=== PATIENT | female | born 1990 | race Two or more races ===

== ENCOUNTER 2017-06-25 16:31 | Inpatient (IN) | payer OTHER ==
[2017-06-25 17:37] VITALS: BMI 29.2
--- NOTE | 2017-06-25 20:27 | HP ---
Admission [facility] Chief Complaint: i am here for rehab from alcohol and cocaine Allergies/Adverse Reactions: Allergies Allergy/AdvReac Type Severity Reaction Status Date / Time No Known Drug Allergies Allergy Verified 06/25/17 19:42 History of Present Illness: this 27 years old female with alcohol and cocaine dependence,seeking rehab,last treatment 06/16/17 to 06/20/17 did not recall the facility nicotine dependence no significant period of sobriety Exam Limitations: No Limitations - Ebola screening Have you traveled outside of the country in the last 21 days: No Have you had contact with anyone from an Ebola affected area: No Have you been sick,other than usual withdrawal symptoms: No - Review of Systems Constitutional: No Symptoms Reported, Changes in sleep EENT: reports: No Symptoms Reported Respiratory: reports: No Symptoms reported, Other (asthma) Cardiac: reports: No Symptoms Reported GI: reports: No Symptoms Reported : reports: No Symptoms Reported Musculoskeletal: reports: No Symptoms Reported Integumentary: reports: No Symptoms Reported Neuro: reports: No Symptoms reported Endocrine: reports: No Symptoms Reported Hematology: reports: No Symptoms Reported Psychiatric: reports: No Sypmtoms Reported Patient History - Patient Medical History Hx Anemia: No Hx Asthma: Yes (on albuterol inhaler) Hx Chronic Obstructive Pulmonary Disease (COPD): No Hx Cancer: No Hx Cardiac Disorders: No Hx Congestive Heart Failure: No Hx Hypertension: No Hx Hypercholesterolemia: No Hx Pacemaker: No HX Cerebrovascular Accident: No Hx Seizures: No Hx Dementia: No Hx Diabetes: No Hx Gastrointestinal Disorders: No Hx Liver Disease: No Hx Genitourinary Disorders: No Hx Sexually Transmitted Disorders: No Hx Renal Disease (ESRD): No Hx Thyroid Disease: No Hx Human Immunodeficiency Virus (HIV): No (2017 negative last) Hx Hepatitis C: No Hx Depression: No Hx Suicide Attempt: No Hx Bipolar Disorder: No Hx Schizophrenia: No Other Medical History: no suicidal,no homicidal - Patient Surgical History Past Surgical History: No - PPD History Previous Implant?: Yes Documented Results: Negative w/o proof Implanted On Prior R Admission?: No PPD to be Administered?: Yes - Reproductive History Patient is a Female of Child Bearing Age (11 -55 yrs old): Yes Last Menstrual Period: 01/14/17 Patient : No - Smoking Cessation Smoking history: Current every day smoker Have you smoked in the past 12 months: Yes Aproximately how many cigarettes per day: 10 Hx Chewing Tobacco Use: No Initiated information on smoking cessation: Yes 'Breaking Loose' booklet given: 06/25/17 - Substance & Tx. History Hx Alcohol Use: Yes Hx Substance Use: Yes Substance Use Type: Alcohol, Cocaine Hx Substance Use Treatment: Yes (06/16/17 to 06/20/[facility]) - Substances Abused Alcohol Route: Oral Frequency: 1-2 times per week Amount used: 3 of 24 ozs of beer Age of first use: 19 Date of Last Use: 06/23/17 Cocaine Route: Inhalation Frequency: 1-2 times per week Amount used: 2 grams Age of first use: 22 Date of Last Use: 06/23/17 Family Disease History - Family Disease History Family History: Denies Admission Physical Exam [facility] - Vital Signs Vital Signs: Vital Signs - 24 hr 06/25/17 17:33 Temperature 97.5 F L Pulse Rate 110 H Respiratory 18 Rate Blood Pressure 124/70 - Physical General Appearance: Yes: Within Normal Limits HEENTM: Yes: Hearing grossly Normal, Normal ENT Inspection, Pharynx Normal Respiratory: Yes: Lungs Clear, Normal Breath Sounds, No Respiratory Distress Neck: Yes: Within Normal Limits Breast: Yes: Breast Exam Deferred Cardiology: Yes: Within Normal Limits, Regular Rhythm, Regular Rate, S1, S2, Diastolic Murmur Abdominal: Yes: Within Normal Limits, Normal Bowel Sounds, Non Tender, Flat, Soft Genitourinary: Yes: Within Normal Limits Back: Yes: Within Normal Limits Musculoskeletal: Yes: Within Normal Limits Extremities: Yes: Within Normal Limits Neurological: Yes: Within Normal Limits, system support analyst II-XII NML intact, Alert, Motor Strength 5/5 Integumentary: Yes: Within Normal Limits Lymphatic: Yes: Within Normal Limits - Diagnostic (1) Alcohol dependence Status: Acute (2) Cocaine dependence Status: Acute (3) Asthma Status: Acute (4) Nicotine dependence Status: Acute Cleared for Admission [facility] - Detox or Rehab Claeared for Rehab Admission: Yes [facility] Breath Alcohol Content Breath Alcohol Content: 0 Urine Pregancy Test - Result Urine Test Results: Negative- NO Line Present Urine Drug Screen - Results Drug Screen Negative: No Urine Drug Screen Results: NARGIS-Cocaine, BZO-Benzodiazepines
[2017-06-25] MEDS ORDERED: MAGNESIUM CITRATE 300 ML BOTTLE PO PRN (20:45)
[2017-06-25] MEDS ORDERED: IBUPROFEN 400 MG TABLET (FP) PO PRN (20:45)
[2017-06-25] MEDS ORDERED: MAG HYDROX/AL HYDROX/SIMETH 30 ML UNIT-DOSE CUP PO PRN (20:45)
[2017-06-25] MEDS ORDERED: LOPERAMIDE HCL 2 MG CAPSULE PO PRN (20:45)
[2017-06-25] MEDS ORDERED: diphenhydrAMINE HCL 50 MG CAPSULE PO PRN (20:45)
[2017-06-25] MEDS ORDERED: MAGNESIUM HYDROX 2400MG/30ML ORAL SUSPENSION 30 ML CUP PO PRN (20:45)
[2017-06-25] MEDS ORDERED: guaiFENesin/D-METHORPHAN HB 10 ML UNIT-DOSE CUPS PO PRN (20:45)
[2017-06-25] MEDS ORDERED: P-EPHED 60MG/TRIPROLIDI 2.5MG TABLET PO PRN (20:45)
[2017-06-25] MEDS ORDERED: ACETAMINOPHEN 325 MG TABLET (FP) PO PRN (20:45)
[2017-06-25] MEDS ORDERED: MENTHOL/PHENOL 1 EACH UD MM PRN (20:45)
[2017-06-25] MEDS ORDERED: ALBUTEROL SO4 6.7 GM HFA INHALER IH PRN (20:47)
[2017-06-25] MEDS ORDERED: TUBERCULIN PPD 5 TU/0.1ML VIAL ID ONE (22:34)
[2017-06-25] MEDS: NICOTINE 21 MG/24 HOURS TOPICAL PATCH TD SCH (22:49)
[2017-06-25] MEDS: THIAMINE HCL 100 MG TABLET (FP) PO SCH (23:52)
[2017-06-26] MEDS: NICOTINE POLACRILEX 2 MG GUM BC PRN ×2 (01:46→07:46)
[2017-06-26] MEDS: hydrOXYzine PAMOATE 50 MG CAPSULE (FP) PO PRN ×2 (01:48→09:15)
[2017-06-26] MEDS: PRENATAL VITAMINS W/ FOLIC ACID TABLET (FP) PO SCH (09:15)
[2017-06-26] MEDS: NICOTINE 21 MG/24 HOURS TOPICAL PATCH TD SCH (09:15)
--- NOTE | 2017-06-26 11:59 | EKG ---
Test Reason : Blood Pressure : / mmHG Vent. Rate : 079 BPM Atrial Rate : 079 BPM P-R Int : 126 ms QRS Dur : 084 ms QT Int : 358 ms P-R-T Axes : 049 044 029 degrees QTc Int : 410 ms NORMAL SINUS RHYTHM POSSIBLE LEFT ATRIAL ENLARGEMENT BORDERLINE ECG NO PREVIOUS ECGS AVAILABLE Confirmed by JODIE SÁNCHEZ, MICHAEL ([id number]) on 06/26/2017 11:58:55 AM Referred By: Confirmed By:MICHAEL FELICIANO MD
--- NOTE | 2017-06-26 13:26 | HP ---
Psychiatrist Admission - Data Date of interview: 06/26/17 Admission source: [facility] Identifying data: This is the first inpatient rehabilitation admission fot this 27 year old female, who is and domiciled. Medical History: Asthma, smokes cigarettes 1/2 PPD. Psychiatric History: Patient is poor unrelable historian, she is uable to provide with any information, she laughing for no reason, changing her answers, told has 3 chilrden, later reported has no children. She is familiar with seroquel , reports "this medication put her me to sleep and I was eating a lot ". When asked what is her pharmacy, [facility] "and all others, why you asking me all this questions" the pharmacy contacted [phone], pharmacist reported that she was on Risperdal 3 mg po hs and Lexapro 10 mg po dailly, was refilled on 01/17. Patient was very detsructive during interview, unable to sit still, silly affect. When asked if she is willing to take Risperdal, she agreed to take medications. Vital Signs: Vital Signs - 24 hr 06/25/17 17:33 Temperature 97.5 F L Pulse Rate 110 H Respiratory 18 Rate Blood Pressure 124/70 Allergies/Adverse Reactions: Allergies Allergy/AdvReac Type Severity Reaction Status Date / Time No Known Drug Allergies Allergy Verified 06/25/17 19:42 Date of last physical exam: 06/25/17 Concur with the findings of this exam: Yes - Substance Abuse/Tx History Hx Alcohol Use: Yes (first time started drinking at age of 19, 1-2 times a week. ) Substance Use Type: Alcohol (3 of 24 ozs of beer), Cocaine (started at age of 22 , 2 gr 1-2 times a week) Hx Substance Use Treatment: Yes ([facility]) - Admission Criteria Previous failed treatment: Yes Poor recovery environment: Yes Comorbidities: No Lacks judgement: Yes Mental Status Exam - Mental Status Exam Alert and Oriented to: Person Cognitive Function: Impaired Patient Appearance: Well Groomed Mood: Elated, Euphoric, Expansive Affect: Mood Congruent Patient Behavior: Restless, Guarded, Distractible, Talkative Speech Pattern: Tangential Voice Loudness: Normal Thought Process: Loose Associations, Disorganized Thought Disorder: Bizarre Hallucinations: Denies Suicidal Ideation: Denies Homicidal Ideation: Denies Insight/Judgement: Impaired Sleep: Fair Appetite: Good Muscle strength/Tone: Normal Gait/Station: Normal Psychiatric Findings - Problem List ([place] 1, 2,3) (1) Asthma Current Visit: Yes Status: Acute (2) Alcohol dependence Current Visit: Yes Status: Acute (3) Cocaine dependence Current Visit: Yes Status: Acute (4) Nicotine dependence Current Visit: Yes Status: Acute (5) Unspecified psychosis Current Visit: Yes Status: Acute - Initial Treatment Plan Initial Treatment Plan: will start risperdal 1 mg po bid, 1 mg stat, monitor progress.
[2017-06-26 13:49] LABS: URINE APPEARANCE SLCLOUDY; URINE BILIRUBIN NEGATIVE (NEGATIVE); URINE BLOOD NEGATIVE (NEGATIVE); URINE COLOR YELLOW; URINE GLUCOSE (UA) NEGATIVE (NEGATIVE); URINE KETONE NEGATIVE (NEGATIVE); URINE NITRITE NEGATIVE (NEGATIVE); URINE PROTEIN NEGATIVE (NEGATIVE); URINE UROBILINOGEN NEGATIVE mg/dL (0.2-1.0)
[2017-06-26 13:53] LABS: URINE LEUK ESTERASE 3+ (NEGATIVE)
[2017-06-26 13:59] LABS: URINE MUCUS RARE; URINE RBC 1 /hpf (0-3); URINE WBC 9 /hpf (3-5)
[2017-06-26] MEDS ORDERED: risperiDONE 1 MG TABLET (FP) PO ONE (14:35)
[2017-06-26] MEDS: THIAMINE HCL 100 MG TABLET (FP) PO SCH (21:11)
[2017-06-26] MEDS: risperiDONE 1 MG TABLET (FP) PO SCH (21:12)
[2017-06-26] MEDS ORDERED: HALOPERIDOL 5 MG TABLET (FP) PO STA (23:27)
[2017-06-26] MEDS ORDERED: diphenhydrAMINE HCL 50 MG CAPSULE PO STA (23:28)
[2017-06-26] MEDS ORDERED: HALOPERIDOL 1 MG TABLET (FP) PO ONE (23:30)
[2017-06-26] MEDS ORDERED: HALOPERIDOL 1 MG TABLET (FP) PO PRN (23:32)
[2017-06-27 07:27] VITALS: BP 122/71; PULSE 96; TEMP 98.7
[2017-06-27] MEDS: PRENATAL VITAMINS W/ FOLIC ACID TABLET (FP) PO SCH (10:02)
[2017-06-27] MEDS: NICOTINE POLACRILEX 2 MG GUM BC PRN (10:03)
[2017-06-27] MEDS: risperiDONE 1 MG TABLET (FP) PO SCH ×2 (10:03→10:25)
[2017-06-27] MEDS: NICOTINE 21 MG/24 HOURS TOPICAL PATCH TD SCH (10:03)
[2017-06-27 10:21] LABS: ALBUMIN 4.2 g/dl (3.4-5.0); ANION GAP 9 (8-16); CALCIUM 10.1 mg/dL (8.5-10.1); CO2 29 mmol/L (21-32); CREATININE 0.9 mg/dL (0.55-1.02); GLUCOSE,RANDOM 85 mg/dL (74-106); SGOT/AST 22 U/L (15-37)
[2017-06-27 10:24] LABS: ALK PHOS 71 U/L (45-117); BILIRUBIN,TOTAL 0.6 mg/dL (0.2-1.0); MCH 32.1 pg (25.7-33.7); MCHC 33.3 g/dl (32.0-36.0); MEAN CELL VOLUME 96.4 fl (80-96); PLATELET COUNT 327 K/MM3 (134-434); RDW 12.4 % (11.6-15.6); SGPT/ALT 50 U/L (12-78); TOT PROT 7.8 g/dl (6.4-8.2); WHITE BLOOD COUNT 8.5 K/mm3 (4.0-10.0)
[2017-06-27 14:03] LABS: HIV 1 & 2 AB NEGATIVE; HIV 1 AGp24 NEGATIVE
--- NOTE | 2017-06-27 16:23 | PN ---
[facility] Progress Note Note: called by nurse stated patient walked out of the unit ama,psychiatrist on called notify by nurse
== END 2017-06-27 22:34 | disposition home or self-care (01) | DRG 895 ==
LOC: YASAS 16:31 → Y3E 20:10 → UNDOADMIN 20:10
PROVIDERS: ADMIT Psychiatry & Neurology Psychiatry; ATTEND Psychiatry & Neurology Psychiatry
PROC: HZ42ZZZ Group Counseling for Substance Abuse Treatment, Cognitive-Behavioral (ICD-10-PCS; principal; 2017-06-27)
DX: F14.20 Cocaine dependence, uncomplicated (principal); F12.20 Cannabis dependence, uncomplicated; F17.210 Nicotine dependence, cigarettes, uncomplicated; F29 Unspecified psychosis not due to a substance or known physiological condition; J45.909 Unspecified asthma, uncomplicated
CPT/HCPCS: 36415; 80053; 81003; 81015; 85027; 86593; 87389; 93005; 93010; J2794